=== PATIENT | male | born 1925 | race Caucasian/White ===

== ENCOUNTER 2016-12-21 11:25 | Emergency (ER) | payer MEDICARE ==
[~2016-12-21] VITALS: Ht 177.8 cm; Wt 97.5 kg
[~2016-12-21 11:25] MED LIST: ACHD5005 PO; ALBU0.632 NEB; ALBU17AE23 IH; ALBU17AE3 IH; ALBU2.5V4 IH; ASMANEX; ASP81CT; ASP81TEC PO; ASPI-892 PO; ATOR40TA; ATOR40TA PO; CHLO4TAB PO; CHLO4TAB36 PO; CLOP75TA PO; DCS100C PO; E400C; FISH1CAP15 PO; FL025NA25; FLUN7INH IH; FORM12CA IH; FRSM40T PO; HYDR-3812 PO; HYDR1TAB PO; IBP600T1 PO; KCL20TCR PO; LEVO500T69 PO; LISI-552 PO; LISI10TA PO; LISI20TA PO; LORA-404 PO; LORA0.5T PO; LOSA100T28 PO; LOSA50TA2 PO; MAG-5 PO; MECL-106 PO; MECL-124 PO; METH4TAB PO; METO50TA7; MOME220A2 IH; MTL5T PO; MULT1TAB63; NAPR500T3 PO; OMEG-109 PO; OMEG-160 PO; OMG1KC PO; PANT40TA2 PO; PHEN30SP4 NS; PROP1TAB77 PO; TIOT18CA; TIOT18CA INH; TRIA10.8 NS
--- OUTSIDE RECORDS SUMMARY | 2016-12-21 11:32 | XMS REPORT | Continuity of Care Document ---
Author Author [facility] Organization [facility] Address Unknown Phone Unavailable Allergies Active Description Code Type Severity Reaction Onset Reported/Identified Relationship to Patient Clinical Status Yes NKANo Known Allergies NKA Miscellaneous Allergy Unknown N/ A 12/31/2015 Medications Problems Date Dx Coded Attending Type Code Diagnosis Diagnosed By 01/25/2015 PERSTON FUNEZ, REJI Hensley Ot 496 01/25/2015 PRESTON FUNEZ, REJI Hensley Ot 780.4 01/25/2015 PRESTON FUNEZ, REJI Hensley Ot 780.79 10/25/2015 HOME FUNEZ, CELIO R Ot E11.9 10/25/2015 HOME FUNEZ, CELIO R Ot F41.9 10/25/2015 HOME FUNEZ, CELIO R Ot I10 10/25/2015 HOME FUNEZ, CELIO R Ot J44.1 10/27/2015 PRESTON FUNEZ, REJI Hensley Ot I51.7 10/27/2015 PRESTON FUNEZ, REJI Hensley Ot J44.9 10/27/2015 PRESTON FUNEZ, REJI K Ot Z95.1 10/27/2015 PRESTON FUNEZ, REJI K Ot Z99.81 11/13/2015 HOME FUNEZ, CELIO R Ot E11.9 11/13/2015 HOME FUNEZ, CELIO R Ot I10 11/13/2015 HOME FUNEZ, CELIO R Ot J30.9 11/13/2015 HOME FUNEZ, CELIO R Ot J44.1 11/13/2015 HOME FUNEZ, CELIO R Ot J98.6 11/13/2015 HOME FUNEZ, CELIO R Ot K21.9 11/13/2015 HOME FUNEZ, CELIO R Ot Z87.891 12/05/2015 HOME FUNEZ, CELIO R Ot E78.5 12/05/2015 HOME FUNEZ, CELIO R Ot H91.10 12/05/2015 HOME FUNEZ, CELIO R Ot I10 12/05/2015 HOME FUNEZ, CELIO R Ot I25.10 12/05/2015 HOME FUNEZ, CELIO R Ot J44.9 12/05/2015 HOME FUNEZ, CELIO R Ot J84.10 12/05/2015 HOME FUNEZ, CELIO R Ot K21.9 12/05/2015 HOME FUNEZ, CELIO R Ot M19.90 12/05/2015 HOME FUNEZ, CELIO R Ot R06.02 12/05/2015 HOME FUNEZ, CELIO R Ot Z87.891 12/05/2015 HOME FUNEZ, CELIO R Ot Z95.1 12/05/2015 HOME FUNEZ, CELIO R Ot Z95.5 12/05/2015 HOME FUNEZ, CELIO R Ot E78.5 12/05/2015 HOME FUNEZ, CELIO R Ot H91.10 12/05/2015 HOME FUNEZ, CELIO R Ot I10 12/05/2015 HOME FUNEZ, CELIO R Ot I25.10 12/05/2015 HOME FUNEZ, CELIO R Ot J44.9 12/05/2015 HOME FUNEZ, CELIO R Ot J84.10 12/05/2015 HOME FUNEZ, CELIO R Ot K21.9 12/05/2015 HOME FUNEZ, CELIO R Ot M19.90 12/05/2015 HOME FUNEZ, CELIO R Ot R06.02 12/05/2015 HOME FUNEZ, CELIO R Ot Z87.891 12/05/2015 HOME FUNEZ, CELIO R Ot Z95.1 12/05/2015 HOME FUNEZ, CELIO R Ot Z95.5 01/01/2016 HOME FUNEZ, CELIO R Ot E11.9 TYPE 2 DIABETES MELLITUS WITHOUT COMPLIC 01/01/2016 HOME FUNEZ, CELIO R Ot F41.9 ANXIETY DISORDER, UNSPECIFIED 01/01/2016 HOME FUNEZ, CELIO R Ot I10 ESSENTIAL (PRIMARY) HYPERTENSION 01/01/2016 HOME FUNEZ, CELIO R Ot J44.9 CHRONIC OBSTRUCTIVE PULMONARY DISEASE, U 01/01/2016 HOME FUNEZ, CELIO R Ot K21.9 GASTRO-ESOPHAGEAL REFLUX DISEASE WITHOUT 01/01/2016 CELIO BHAT MD Ot R06.00 DYSPNEA, UNSPECIFIED 01/01/2016 CELIO BHAT MD Ot Z95.1 PRESENCE OF AORTOCORONARY BYPASS GRAFT 01/01/2016 CELIO BHAT MD Ot Z95.5 PRESENCE OF CORONARY ANGIOPLASTY IMPLANT 05/04/2016 Ot 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 Visit Date/Time Discharge Status Pt. Type Provider Facility Loc./Unit Complaint [id number] 12/31/2015 17:10:00 2015 14:07:00 DIS Inpatient CELIO BHAT MD Via [address] SOA [id number] 12/31/2015 16:42:00 2015 16:42:00 CAN Preadmit KRISTI CRUZ DO [facility] ER [id number] 12/04/2015 17:42:00 2015 13:20:00 DIS Inpatient CELIO BHAT MD [facility] [id number] 11/10/2015 22:05:00 2015 09:13:00 DIS Inpatient CELIO BHAT MD Via [address] [id number] 10/27/2015 11:36:00 2015 14:05:00 DIS Emergency REJI JOHNSTON MD [facility] ER [id number] 01/25/2015 14:38:00 2014 16:49:00 DIS Emergency REJI JOHNSTON MD [facility] ER [id number] 05/16/2013 09:46:00 2012 23:59:59 CLS Outpatient [id number] 10/23/2015 11:44:00 ACT Inpatient HOME FUNEZ, CELIO Banda [facility] 4TH [id number] 01/18/2010 09:26:00 Document Registration
[2016-12-21] MEDS ORDERED: DEXAMETHASONE 4 MG/ML SDV (DECADRON) IH ONE (11:45)
[2016-12-21] MEDS ORDERED: RT-ALBUTEROL/IPRATROPIUM 3 ML (DUONEB) VIAL INH ONE (11:45)
[2016-12-21 12:01] LABS: ABG HCO3 22 MMOL/L (23-27); ABG OXYGEN SATURATION 97 % (94-100); ABG PCO2 32 MMHG (35-45); ABG PH 7.46 (7.37-7.43); ABG PO2 72 MMHG (79-93); ABG TCO2 23.4 MMOL/L (21.0-31.0)
[2016-12-21 12:02] LABS: BASOPHILS % (AUTO) 0 % (0-10); EOSINOPHILS # (AUTO) 0.2 10^3/uL (0.0-0.3); EOSINOPHILS % (AUTO) 3 % (0-10); LYMPHOCYTES # (AUTO) 1.4 X 10^3 (1.0-4.0); LYMPHOCYTES % (AUTO) 20 % (12-44); MEAN CORPUSCULAR HEMOGLOBIN 31 PG (25-34); MEAN CORPUSCULAR HGB CONC 35 G/DL (32-36); MEAN CORPUSCULAR VOLUME 91 FL (80-99); MEAN PLATELET VOLUME 9.3 FL (7.4-10.4); MONOCYTES # (AUTO) 1.1 X 10^3 (0.0-1.0); MONOCYTES % (AUTO) 16 % (0-12); NEUTROPHILS # (AUTO) 4.2 X 10^3 (1.8-7.8); NEUTROPHILS % (AUTO) 61 % (42-75); PLATELET COUNT 198 10^3/uL (130-400); RED BLOOD COUNT 4.42 10^6/uL (4.35-5.85); RED CELL DISTRIBUTION WIDTH 13.3 % (10.0-14.5); WHITE BLOOD COUNT 6.9 10^3/uL (4.3-11.0)
[2016-12-21 12:02] LABS: ALLENS TEST YES-POS; PATIENT TEMP 98.2
[2016-12-21 12:18] LABS: INR 1.1 (0.8-1.4); PROTHROMBIN TIME PATIENT 13.7 SEC (12.2-14.7)
[2016-12-21 12:28] LABS: ALANINE AMINOTRANSFERASE 16 U/L (0-55); ALBUMIN 3.9 G/DL (3.2-4.5); ANION GAP 11 MMOL/L (5-14); ASPARTATE AMINO TRANSFERASE 17 U/L (5-34); BILIRUBIN,TOTAL 0.7 MG/DL (0.1-1.0); BLOOD UREA NITROGEN 18 MG/DL (7-18); BUN/CREATININE RATIO 14; CALCIUM 9.3 MG/DL (8.5-10.1); CARBON DIOXIDE 22 MMOL/L (21-32); CHLORIDE 107 MMOL/L (98-107); CREATINE KINASE 99 U/L (30-200); CREATININE SERUM 1.27 MG/DL (0.60-1.30); GFR ESTIMATED 53; GLUCOSE 121 MG/DL (70-105); MAGNESIUM 2.2 MG/DL (1.8-2.4); POTASSIUM 4.1 MMOL/L (3.6-5.0); SODIUM 140 MMOL/L (135-145); TOTAL PROTEIN 6.6 G/DL (6.4-8.2)
--- NOTE | 2016-12-21 12:32 | Diagnostic Imaging Report ---
INDICATION: Increasing shortness of air. Comparison study: Chest from 12/31/2015. FINDINGS: Frontal and lateral views of the chest demonstrate chronic elevation of the left diaphragm with adjacent atelectasis or fibrosis which is unchanged from a year ago. Coronary artery bypass graft changes are present. The vascularity is normal. The right lung is clear. IMPRESSION: Stable chest from a year ago. Dictated by: Dictated on workstation # [id number]
[2016-12-21 12:34] LABS: TROPONIN I < 0.30 NG/ML (<0.30)
--- NOTE | 2016-12-21 12:52 | ED Respiratory ---
General Chief Complaint: Respiratory Problems Stated Complaint: SOB Nursing Triage Note: AMB TO ROOM REPORTS LAST NIGHT HAS INCREASING SOA. REPORTS THAT SAO2 93% Source: patient (DIFFICULT TO KEEP ON SUBJECT. SOMEWHAT LIMITED HISTORIAN) History of Present Illness Time seen by provider: 11:30 Initial Comments PT ARRIVES VIA POV FROM HOME--PT IS AT HOME DURING THE DAY AND STAYS AT [facility] AT NIGHT C/O SHORTNESS OF BREATH --CHRONIC PROBLEM X 17 YEARS. 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 FEELS WEAK HAS MILD OCCASIONAL CHRONIC NON-PRODUCTIVE COUGH NO FEVER NO CHEST PAIN NO SWELLING IN LEGS/ FEET OR PAIN IN CALVES PT WEARS O2 AT NIGHT AND STATES HIS O2 SATS WERE 93% STATES HE USES O2 DURING THE DAY PRN, BUT HAS NOT USED DURING THE DAY IN MONTHS AND HAS NOT USED IT TODAY PT USED HIS PROVENTIL INHALER ENROUTE PT ALSO HAS A NEBULIZER BUT HAS NOT USED IT TODAY PCP: DR. BHAT MACHINE ADJUSTER LEADER: DR. MALIK IN [place] Allergies and Home Medications Allergies Coded Allergies: Teena Known Allergies (Verified Allergy, Unknown, 12/31/15) Home Medications Albuterol 17 Gm Inh 2 PUFF IH Q6H PRN PRN SHORTNESS OF BREATH (Reported) Albuterol Sulfate 2.5 Mg/3 Ml Vial.neb 2.5 MG IH Q4H PRN PRN SHORTNESS OF BREATH (Reported) Aspirin 81 Mg Tablet.dr 81 MG PO HS (Reported) Atorvastatin Calcium 40 Mg Tablet 40 MG PO HS (Reported) Budesonide 1 Mg/2 Ml Ampul.neb #1 1 MG IH BID Prescribed by: NESTOR SHAY on 12/21/16 1303 Cefdinir 300 Mg Capsule #20 300 MG PO BID Prescribed by: NESTOR SHAY on 12/21/16 1303 Clopidogrel Bisulfate 75 Mg Tablet 75 MG PO DAILY (Reported) Docusate Sodium 100 Mg Capsule 100 MG PO BID (Reported) Formoterol Fumarate 12 Mcg Cap.w.dev 1 PUFF IH Q12H (Reported) Furosemide 40 Mg Tab 40 MG PO DAILY (Reported) Hydrocodone/Acetaminophen 1 Each Tablet 1 TAB PO Q4H PRN PRN PAIN (Reported) Lorazepam 0.5 Mg Tablet 0.5 MG PO Q4H PRN PRN ANXIETY (Reported) Losartan Potassium 100 Mg Tablet 50 MG PO DAILY (Reported) TAKES 1/2 OF A (100 MG) TABLET Mag Hydrox/Al Hydrox/Simeth 355 Ml Oral.susp 20 ML PO QID PRN PRN STOMACH UPSET (Reported) Meclizine HCl 25 Mg Tablet 25-50 MG PO DAILY PRN PRN DIZZINESS/VERTIGO (Reported ) Methylprednisolone 4 Mg Tab.ds.pk #1 4 MG PO UD Prescribed by: NESTOR SHAY on 12/21/16 1303 Mometasone Furoate 220 Mcg Aer.pow.ba 1 PUFF IH BID (Reported) Naproxen 500 Mg Tablet 500 MG PO BID PRN PRN PAIN (Reported) [place] 3 Polyunsat Fatty Acids 1,000 Mg Cap 1,000 MG PO BID (Reported) Pantoprazole Sodium 40 Mg Tablet.dr 40 MG PO DAILY (Reported) Phenylephrine HCl 30 Ml [place] 1 SPRAY NS PRN PRN PRN CONGESTION (Reported) Potassium Chloride 20 Meq Tabsr 40 MEQ PO DAILY (Reported) TAKES 2 (20 MEQ) TABLETS Tiotropium [place] 18 Mcg Cap.w.dev 1 CAP INH DAILY (Reported) Triamcinolone Acetonide 10.8 Ml [place] 1 SPRAY NS DAILY (Reported) Constitutional: see HPINo chills, No diaphoresis, No dizziness, No fever, malaise weakness EENTM: no symptoms reportedNo nose congestion Respiratory: see HPI cough dyspnea on exertion short of breath Cardiovascular: no symptoms reportedNo chest pain, No edema, No palpitations, No syncope Gastrointestinal: no symptoms reported Genitourinary: no symptoms reported Musculoskeletal: no symptoms reported Skin: no symptoms reported Psychiatric/Neurological: No Symptoms Reported Hematologic/Lymphatic: No Symptoms Reported Immunological/Allergic: no symptoms reported Past Gpujmpp-Amngxm-Dzxeel Hx Patient Social History Alcohol Use: Denies Use Recreational Drug Use: No Smoking Status: Former Smoker Former Smoker/When Quit: Nov 10, 1969 Recent Foreign Travel: No Contact w/Someone Who Travel: No Recent Infectious Disease Expo: No Recent Hopitalizations: Yes Immunizations Up To Date Tetanus Booster (TDap): Unknown Date of Pneumonia Vaccine: Jul 25, 2012 Date of Influenza Vaccine: Aug 03, 2015 Surgeries HX Surgeries: Yes (4 bypass surgies, stents, hiatal hernia) Surgeries: CABG, Coronary Stent Respiratory Hx Respiratory Disorders: Yes (EMPHYSEMA) Respiratory Disorders: Pneumonia, Sleep Apnea, COPD, Emphysema Cardiovascular Hx Cardiac Disorders: Yes (STENTS, CABG, "HOLE IN DIAPHRAGM") Cardiac Disorders: Coronary Artery Disease, Hypertension Neurological Hx Neurological Disorders: No Reproductive System Hx Reproductive Disorders: No Genitourinary Hx Genitourinary Disorders: No Gastrointestinal Hx Gastrointestinal Disorders: Yes (LEFT ELEVATED DIAPHRAGM) Gastrointestinal Disorders: Gastroesophageal Reflux, Hiatal Hernia Musculoskeletal Hx Musculoskeletal Disorders: No Endocrine Hx Endocrine Disorders: No HEENT HX ENT Disorders: Yes Hearing Impairment: Hard of Hearing Cancer Hx Cancer: Yes (SKIN CANCER MULTIPLE ) Cancer: Skin Psychosocial Hx Psychiatric Problems: Yes (panic attacks) Behavioral Health Disorders: Anxiety, PTSD Integumentary HX Skin/Integumentary Disorder: No Blood Transfusions Hx Blood Disorders: No Adverse Reaction to a Blood Tr: No Family Medical History Significant Family History: No Pertinent Family Hx Family Medial History: Congenital heart disease G8 BROTHER Hypertension 19 FATHER 19 MOTHER G8 BROTHER G8 BROTHER G8 BROTHER G8 SISTER G8 SISTER G8 SISTER G8 SISTER G8 SISTER Myocardial infarction G8 BROTHER G8 SISTER G8 SISTER Neoplasm G8 BROTHER Physical Exam Vital Signs Vital Sign - Last 12Hours 12/21/16 12/21/16 11:30 13:46 Temp 98.2 Pulse 61 Resp 18 B/P 170/92 Pulse Ox 9 O2 Delivery Nasal Cannula O2 Flow Rate 2 Capillary Refill : Less Than 3 Seconds General Appearance: obese other (PT SOMEWHAT ANXIOUS, PANTING THROUGH NOSE. TALKS NON-STOP AT LENGTH --DIFFICULT TO KEEP ON SUBJECT) HEENT: PERRL/EOMI Neck: normal inspection Respiratory: decreased breath sounds (LEFT BASE) Cardiovascular: regular rate, rhythm no murmur Gastrointestinal: non tender soft Extremities: pedal edema (TRACE BILATERALLY) Neurologic/Psychiatric: central sterile supply technician II-XII nml as tested no motor/sensory deficits alert oriented x 3 other (MILDLY ANXIOUS) Skin: normal color warm/dry Focused Exam Lactic Acid Level Laboratory Tests Test 12/21/16 11:54 Alanine Aminotransferase (ALT/SGPT) 16U/L (0-55) Albumin 3.9G/DL (3.2-4.5) Alkaline Phosphatase 42U/L (40-136) Anion Gap 11MMOL/L (5-14) Aspartate Amino Transf (AST/SGOT) 17U/L (5-34) B-Type Natriuretic Peptide 128.7PG/ML (<100.0) H BUN/Creatinine Ratio 14 Blood Urea Nitrogen 18MG/DL (7-18) Calcium Level 9.3MG/DL (8.5-10.1) Carbon Dioxide Level 22MMOL/L (21-32) Chloride Level 107MMOL/L (98-107) Creatine Kinase MB 2.8NG/ML (<6.6) Creatinine 1.27MG/DL (0.60-1.30) Estimat Glomerular Filtration Rate 53 Glucose Level 121MG/DL (70-105) H Magnesium Level 2.2MG/DL (1.8-2.4) Potassium Level 4.1MMOL/L (3.6-5.0) Sodium Level 140MMOL/L (135-145) Total Bilirubin 0.7MG/DL (0.1-1.0) Total Creatine Kinase 99U/L (30-200) Total Protein 6.6G/DL (6.4-8.2) Troponin I < 0.30NG/ML (<0.30) Progress/Results/Core Measures Results/Orders Lab Results Laboratory Tests Test 12/21/16 11:53 12/21/16 11:54 Range/Units Sawyer Test YES-POS Arterial Blood Base Excess -1.0 -2.5-2.5 MMOL/L Arterial Blood HCO3 22 L 23-27 MMOL/L Arterial Blood Oxygen Saturation 97 94-100 % Arterial Blood Partial Pressure CO2 32 L 35-45 MMHG Arterial Blood Partial Pressure O2 72 L 79-93 MMHG Arterial Blood Total CO2 23.4 21.0-31.0 MMOL/L Arterial Blood pH 7.46 H 7.37-7.43 Blood Gas Inspired Oxygen 2 L Blood Gas Patient Temperature 98.2 Blood Gas Puncture Site RT BRACH Blood Gas Ventilator Setting NO Activated Partial Thromboplast Time 26 24-35 SEC Alanine Aminotransferase (ALT/SGPT) 16 0-55 U/L Albumin 3.9 3.2-4.5 G/DL Alkaline Phosphatase 42 40-136 U/L Anion Gap 11 5-14 MMOL/L Aspartate Amino Transf (AST/SGOT) 17 5-34 U/L B-Type Natriuretic Peptide 128.7 H <100.0 PG/ML BUN/Creatinine Ratio 14 Basophils # (Auto) 0.0 0.0-0.1 10^3/uL Basophils (%) (Auto) 0 0-10 % Blood Urea Nitrogen 18 7-18 MG/DL Calcium Level 9.3 8.5-10.1 MG/DL Carbon Dioxide Level 22 21-32 MMOL/L Chloride Level 107 98-107 MMOL/L Creatine Kinase MB 2.8 <6.6 NG/ML Creatinine 1.27 0.60-1.30 MG/DL Eosinophils # (Auto) 0.2 0.0-0.3 10^3/uL Eosinophils (%) (Auto) 3 0-10 % Estimat Glomerular Filtration Rate 53 Glucose Level 121 H 70-105 MG/DL Hematocrit 40 40-54 % Hemoglobin 13.8 13.3-17.7 G/DL INR Comment 1.1 0.8-1.4 Lymphocytes # (Auto) 1.4 1.0-4.0 X 10^3 Lymphocytes (%) (Auto) 20 12-44 % Magnesium Level 2.2 1.8-2.4 MG/DL Mean Corpuscular Hemoglobin 31 25-34 PG Mean Corpuscular Hemoglobin Concent 35 32-36 G/DL Mean Corpuscular Volume 91 80-99 FL Mean Platelet Volume 9.3 7.4-10.4 FL Monocytes # (Auto) 1.1 H 0.0-1.0 X 10^3 Monocytes (%) (Auto) 16 H 0-12 % Neutrophils # (Auto) 4.2 1.8-7.8 X 10^3 Neutrophils (%) (Auto) 61 42-75 % Platelet Count 198 130-400 10^3/uL Potassium Level 4.1 3.6-5.0 MMOL/L Prothrombin Time 13.7 12.2-14.7 SEC Red Blood Count 4.42 4.35-5.85 10^6/uL Red Cell Distribution Width 13.3 10.0-14.5 % Sodium Level 140 135-145 MMOL/L Total Bilirubin 0.7 0.1-1.0 MG/DL Total Creatine Kinase 99 30-200 U/L Total Protein 6.6 6.4-8.2 G/DL Troponin I < 0.30 <0.30 NG/ML White Blood Count 6.9 4.3-11.0 10^3/uL My Orders Orders-NESTOR SHAY DO Saline Lock/Iv-Start (12/21/16 11:31) Ekg Tracing (12/21/16 11:31) O2 (12/21/16 11:31) Monitor-Rhythm Ecg Trace Only (12/21/16 11:31) Arterial Blood Gas (12/21/16 11:31) BNP (12/21/16 11:31) Cbc With Automated Diff (12/21/16 11:31) Comprehensive Metabolic Panel (12/21/16 11:31) Creatine Kinase (12/21/16 11:31) Creatine Kinase Mb (12/21/16 11:31) Magnesium (12/21/16 11:31) Protime With Inr (12/21/16 11:31) Partial Thromboplastin Time (12/21/16 11:31) Troponin I (12/21/16 11:31) Albuterol/Ipra Inhalation Soln (Duoneb I (12/21/16 11:45) Dexamethasone Injection (Decadron Inject (12/21/16 11:45) Rt Request For Service (12/21/16 11:40) Svn Sm Volume Nebulizer Rt-Rfs (12/21/16 11:40) Chest Pa/Lat (2 View) (12/21/16 11:52) Methylprednisolone Sod Succ (Solu-Medrol (12/21/16 13:00) Ceftriaxone Injection (Rocephin Injectio (12/21/16 13:00) Medications Given in ED Vital Signs/I&O Vital Sign - Last 12Hours 12/21/16 12/21/16 12/21/16 12/21/16 11:30 11:30 12:00 13:46 Temp 98.2 Pulse 61 Resp 18 B/P 170/92 Pulse Ox 9 94 94 O2 Delivery Nasal Cannula O2 Flow Rate 2 2 Blood Pressure Mean: 118 Progress Note : Progress Note INCREASED AERATION, FEELS BETTER AT TIME OF DISMISSAL PT COMFORTABLE GOING HOME. ECG Initial ECG Impression Time: 11:42 Initial ECG Rate: 76 Initial ECG Rhythm: Normal Sinus Initial ECG Comparisson: Unchanged Diagnostic Imaging Comments CXR--CHRONIC CHANGES, NO ACUTE PROCESS, PER RADIOLOGIST REPORT @ 1250 Reviewed: Reviewed by Me Departure Impression Impression: Primary Impression: COPD with acute exacerbation Disposition: 01 HOME, SELF-CARE Condition: Improved Departure-Patient Inst. Referrals: CELIO BHAT MD (PCP/Family) Primary Care Physician Patient Instructions: Exacerbation of COPD (DC) Add. Discharge Instructions: TAKE YOUR MEDICATIONS PRESCRIBED USE YOUR ALBUTEROL BY NEBULIZER 4 TIMES A DAY USE YOUR HOME OXYGEN DURING THE DAY NEEDED IF YOUR OXYGEN LEVEL FALLS BELOW 92% FOLLOW UP WITH YOUR REGULAR DR THIS WEEK FOR FURTHER CARE All discharge instructions reviewed with patient and/or family. Voiced understanding. Scripts Budesonide (Pulmicort)1 Mg/2 Ml Ampul.neb1 Mg IH BID #1 INHALER Prov:NESTOR SHAY DO 12/21/16 Methylprednisolone (Medrol)4 Mg Tab.ds.pk4 Mg PO UD #1 PKG Prov:NESTOR SHAY DO 12/21/16 Cefdinir 300 Mg [id number] Mg PO BID FOR INFECTION #20 CAP Prov:NESTOR SHAY DO 12/21/16 NESTOR SHAY DO Dec 21, 2016 12:51
[2016-12-21] MEDS ORDERED: cefTRIAXone INJECTION 1,000 MG in NS (IVPB) 50 ML IV ONE (13:00)
[2016-12-21] MEDS ORDERED: methylPREDNISolone 125 MG (Solu-MEDROL) VIAL IVP ONE (13:00)
[2016-12-21] MEDS ORDERED: CEFD300C3 PO (13:03)
[2016-12-21] MEDS ORDERED: METH4TAB PO (13:03)
[2016-12-21] MEDS ORDERED: BUDE1AMP IH (13:03)
[2016-12-21 13:46] VITALS: BP 137/77
== END 2016-12-21 13:46 | disposition home or self-care (01) ==
LOC: EDUNIT# 11:25 → ER 11:28
DX: J44.1 Chronic obstructive pulmonary disease with (acute) exacerbation (principal); I10 Essential (primary) hypertension; Z79.82 Long term (current) use of aspirin; Z79.899 Other long term (current) drug therapy; Z87.891 Personal history of nicotine dependence; Z95.1 Presence of aortocoronary bypass graft; Z95.5 Presence of coronary angioplasty implant and graft
CPT/HCPCS: 36415; 71020; 80053; 82550; 82553; 82805; 83735; 83880; 84484; 85025; 85610; 85730; 93005; 93041; 96365; 96375

== ENCOUNTER 2017-05-23 07:01 | Emergency (ER) | payer MEDICARE ==
[~2017-05-23] VITALS: Ht 175.3 cm; Wt 98.9 kg
[~2017-05-23 07:01] MED LIST changes: +BUDE1AMP IH; +CEFD300C3 PO; -NAPR500T3 PO; +NAPR500T4 PO
[2017-05-23] MEDS ORDERED: methylPREDNISolone 125 MG (Solu-MEDROL) VIAL IM STA (07:48)
[2017-05-23] MEDS ORDERED: METH4TAB PO (07:53)
[2017-05-23] MEDS ORDERED: CEFD300C3 PO (07:53)
--- NOTE | 2017-05-23 07:53 | ED Cough/URI ---
General Chief Complaint: Cough/Cold/Flu Symptoms Stated Complaint: CONGESTION Nursing Triage Note: PT CO OF HEAD CONGESTION, STATES DRAINAGE RUNNING DOWN BACK OF THROAT. Source: patient (VERY HARD OF HEARING), other (NIECE) History of Present Illness Time seen by provider: 07:30 Initial Comments C/O SINUS DRAINAGE AND NASAL CONGESTION SINCE YESTERDAY NO FEVER HAVING DIFFICULTY USING HOME O2 LAST NIGHT DUE TO NASAL CONGESTION, SO DID NOT WEAR IT AFTER 0130 THIS AM, THEN HE COULDN'T SLEEP NO CHEST PAIN NO INCREASE IN CHRONIC SHORTNESS OF BREATH NO COUGH USES NASACORT NASAL SPRAY AND GIVES TEMPORARY RELIEF PT STAYS AT [facility] AT NIGHT, AND IS AT HIS FARM DURING THE DAY. PCP: DR. BHTA PULMONOLOGY: DR. MALIK CARDIOLOGY: DR. ISSA Allergies and Home Medications Allergies Coded Allergies: NKANo Known Allergies (Verified Allergy, Unknown, 12/31/15) Home Medications Albuterol 17 Gm Inh, 2 PUFF IH Q6H PRN for SHORTNESS OF BREATH, (Reported) Albuterol Sulfate 2.5 Mg/3 Ml Vial.neb, 2.5 MG IH Q4H PRN for SHORTNESS OF BREATH, (Reported) Aspirin 81 Mg Tablet.dr, 81 MG PO HS, (Reported) Atorvastatin Calcium 40 Mg Tablet, 40 MG PO HS, (Reported) Budesonide 1 Mg/2 Ml Ampul.neb, 1 MG IH BID, #1 Prescribed by: NESTOR SHAY on 12/21/16 1303 Cefdinir 300 Mg Capsule, 300 MG PO BID, #20 Prescribed by: NESTOR SHAY on 12/21/16 1303 Cefdinir 300 Mg Capsule, 300 MG PO BID, #30 Prescribed by: NESTOR SHAY on 05/23/17 0753 Clopidogrel Bisulfate 75 Mg Tablet, 75 MG PO DAILY, (Reported) Docusate Sodium 100 Mg Capsule, 100 MG PO BID, (Reported) Formoterol Fumarate 12 Mcg Cap.w.dev, 1 PUFF IH Q12H, (Reported) Furosemide 40 Mg Tab, 40 MG PO DAILY, (Reported) Hydrocodone/Acetaminophen 1 Each Tablet, 1 TAB PO Q4H PRN for PAIN, (Reported) Lorazepam 0.5 Mg Tablet, 0.5 MG PO Q4H PRN for ANXIETY, (Reported) Losartan Potassium 100 Mg Tablet, 50 MG PO DAILY, (Reported) TAKES 1/2 OF A (100 MG) TABLET Mag Hydrox/Al Hydrox/Simeth 355 Ml Oral.susp, 20 ML PO QID PRN for STOMACH UPSET , (Reported) Meclizine HCl 25 Mg Tablet, 25-50 MG PO DAILY PRN for DIZZINESS/VERTIGO, ( Reported) Methylprednisolone 4 Mg Tab.ds.pk, 4 MG PO UD, #1 Prescribed by: NESTOR SHAY on 12/21/16 1303 Methylprednisolone 4 Mg Tab.ds.pk, 4 MG PO UD, #1 Prescribed by: NESTOR SHAY on 05/23/17 0753 Mometasone Furoate 220 Mcg Aer.pow.ba, 1 PUFF IH BID, (Reported) Naproxen 500 Mg Tablet, 500 MG PO BID PRN for PAIN, (Reported) [place] 3 Polyunsat Fatty Acids 1,000 Mg Cap, 1,000 MG PO BID, (Reported) Pantoprazole Sodium 40 Mg Tablet.dr, 40 MG PO DAILY, (Reported) Phenylephrine HCl 30 Ml [place], 1 SPRAY NS PRN PRN for CONGESTION, (Reported) Potassium Chloride 20 Meq Tabsr, 40 MEQ PO DAILY, (Reported) TAKES 2 (20 MEQ) TABLETS Tiotropium [place] 18 Mcg Cap.w.dev, 1 CAP INH DAILY, (Reported) Triamcinolone Acetonide 10.8 Ml [place], 1 SPRAY NS DAILY, (Reported) Constitutional: no symptoms reported EENTM: see HPI Respiratory: see HPI Cardiovascular: no symptoms reported Gastrointestinal: no symptoms reported Musculoskeletal: no symptoms reported Skin: no symptoms reported Psychiatric/Neurological: No Symptoms Reported Hematologic/Lymphatic: No Symptoms Reported Past Epxaabi-Qywpav-[place]sl[place] Hx Patient Social History Alcohol Use: Denies Use Recreational Drug Use: No Smoking Status: Former Smoker Type Used: Cigarettes Former Smoker/When Quit: Nov 10, 1969 Recent Foreign Travel: No Contact w/Someone Who Travel: No Recent Infectious Disease Expo: No Recent Hopitalizations: No Immunizations Up To Date Tetanus Booster (TDap): Unknown Date of Pneumonia Vaccine: Jul 25, 2012 Date of Influenza Vaccine: Aug 03, 2015 Surgeries HX Surgeries: Yes (4 bypass surgies, stents, hiatal hernia) Surgeries: CABG, Coronary Stent Respiratory Hx Respiratory Disorders: Yes (EMPHYSEMA; O2 AT HS AND PRN DURING THE DAY) Respiratory Disorders: Pneumonia, Sleep Apnea, COPD, Emphysema Cardiovascular Hx Cardiac Disorders: Yes (STENTS, CABG, "HOLE IN DIAPHRAGM") Cardiac Disorders: Coronary Artery Disease, Hypertension Neurological Hx Neurological Disorders: No Reproductive System Hx Reproductive Disorders: No Genitourinary Hx Genitourinary Disorders: No Gastrointestinal Hx Gastrointestinal Disorders: Yes (LEFT ELEVATED DIAPHRAGM) Gastrointestinal Disorders: Gastroesophageal Reflux, Hiatal Hernia Musculoskeletal Hx Musculoskeletal Disorders: No Endocrine Hx Endocrine Disorders: No HEENT HX ENT Disorders: Yes Hearing Impairment: Hard of Hearing, Bilateral Hearing Aide Cancer Hx Cancer: Yes (SKIN CANCER MULTIPLE ) Cancer: Skin Psychosocial Hx Psychiatric Problems: Yes (panic attacks) Behavioral Health Disorders: Anxiety, PTSD Integumentary HX Skin/Integumentary Disorder: No Blood Transfusions Hx Blood Disorders: No Adverse Reaction to a Blood Tr: No Family Medical History Significant Family History: No Pertinent Family Hx Family Medial History: Congenital heart disease G8 BROTHER Hypertension 19 FATHER 19 MOTHER G8 BROTHER G8 BROTHER G8 BROTHER G8 SISTER G8 SISTER G8 SISTER G8 SISTER G8 SISTER Myocardial infarction G8 BROTHER G8 SISTER G8 SISTER Neoplasm G8 BROTHER Physical Exam Vital Signs Vital Sign - Last 12Hours 05/23/17 07:05 Temp 97.9 Pulse 78 Resp 18 B/P (MAP) 156/89 Pulse Ox 92 O2 Delivery Room Air Capillary Refill : Less Than 3 Seconds General Appearance: WD/WN, no apparent distress HEENT: PERRL/EOMI, other (NASAL MUCOSAL EDEMA, WHITE POST NASAL DRAINAGE. + MAXILLARY AND FRONTAL SINUS TENDERNESS) Neck: normal inspection Respiratory: normal breath sounds, no respiratory distress, no accessory muscle use Cardiovascular: regular rate, rhythm, no edema, no murmur Neurologic/Psychiatric: patient liaison II-XII nml as tested, no motor/sensory deficits, alert, normal mood/affect, oriented x 3 Skin: normal color, warm/dry Progress/Results/Core Measures Results/Orders My Orders Orders - NESTOR SHAY DO Ceftriaxone Injection (Rocephin Injectio (05/23/17 08:00) Methylprednisolone Sod Succ (Solu-Medrol (05/23/17 07:48) Lidocaine 1% Injection (Xylocaine 1% Inj (05/23/17 08:00) Vital Signs/I&O Vital Sign - Last 12Hours 05/23/17 07:05 Temp 97.9 Pulse 78 Resp 18 B/P (MAP) 156/89 Pulse Ox 92 O2 Delivery Room Air Blood Pressure Mean: 111 Departure Impression Impression: Primary Impression: Sinusitis Additional Impression: COPD (chronic obstructive pulmonary disease) Disposition: 01 HOME, SELF-CARE Condition: Stable Departure-Patient Inst. Referrals: CELIO BHAT MD (PCP/Family) Primary Care Physician Patient Instructions: COPD Including Emphysema (DC), Sinusitis, Adult (DC) Add. Discharge Instructions: USE NASACORT NASAL SPRAY--2 SPRAYS EACH NOSTRIL DAILY STAY INDOORS FOR THE NEXT FEW DAYS USE YOUR OXYGEN NEEDED DURING THE DAY, AND ALL NIGHT AT NIGHT FOLLOW UP WITH DR. BHAT IN 2-3 DAYS IF NO BETTER All discharge instructions reviewed with patient and/or family. Voiced understanding. Scripts Methylprednisolone (Medrol) 4 Mg Tab.ds.pk 4 MG PO UD, #1 PKG Prov: NESTOR SHAY DO 05/23/17 Cefdinir (Cefdinir) 300 Mg Capsule 300 MG PO BID for FOR INFECTION, #30 CAP Prov: NESTOR SHAY DO 05/23/17 NESTOR SHAY DO May 23, 2017 07:53
[2017-05-23] MEDS ORDERED: LIDOCAINE 1% INJ 20 ML (XYLOCAINE) VIAL INJ ONE (08:00)
[2017-05-23] MEDS ORDERED: cefTRIAXone 1 GM (ROCEPHIN) VIAL IM ONE (08:00)
[2017-05-23 08:25] VITALS: BP 156/89
== END 2017-05-23 08:25 | disposition home or self-care (01) ==
LOC: EDUNIT# 07:01 → ER 07:02
DX: J32.9 Chronic sinusitis, unspecified (principal); J44.9 Chronic obstructive pulmonary disease, unspecified; F43.10 Post-traumatic stress disorder, unspecified; F41.9 Anxiety disorder, unspecified; I10 Essential (primary) hypertension; G47.30 Sleep apnea, unspecified; I25.10 Atherosclerotic heart disease of native coronary artery without angina pectoris; Z87.891 Personal history of nicotine dependence; Z79.82 Long term (current) use of aspirin; Z95.5 Presence of coronary angioplasty implant and graft; Z95.1 Presence of aortocoronary bypass graft; Z85.828 Personal history of other malignant neoplasm of skin
CPT/HCPCS: 96372; 99284